=== PATIENT | female | born 1960 | race Asian ===

== ENCOUNTER 2020-09-25 10:30 | Inpatient (IN) | payer MEDICARE, OTHER ==
[~2020-09-25] VITALS: Ht 154.9 cm; Wt 76.0 kg
[~2020-09-25 10:30] MED LIST: ASPI-1450 PO; HYDR25TA2 PO; INSU100V SQ; LISI-894 PO; LOVA20TA73 PO; METF-1211 PO
[2020-09-25] MEDS ORDERED: FAMO20 PO (10:53)
[2020-09-25] MEDS ORDERED: DULA1.5P SQ (10:53)
[2020-09-25] MEDS ORDERED: APIX5TAB PO (10:53)
[2020-09-25] MEDS ORDERED: EMPA25TA PO (10:53)
[2020-09-25] MEDS ORDERED: METO25 PO (10:53)
[2020-09-25] MEDS ORDERED: INSU200I4 SQ (10:53)
[2020-10-01] MEDS ORDERED: AMIO200T68 PO ×2 (15:17→17:37)
[2021-02-26] MEDS ORDERED: RINGERS SOLUTION,LACTATED 1,000 ML IV ONE ×2 (05:11→07:30)
[2021-02-26] MEDS ORDERED: ETHYL ALCOHOL 62% ANTISEPTIC NASAL INHALANT 0.6 ML AMPUL NASAL ONE (07:45)
[2021-02-26 08:13] LABS: COVID AG,FIA SOURCE NASOPHARYNGEAL
[2021-02-26] MEDS ORDERED: TRANEXAMIC ACID 1,000 MG in DEXTROSE 5%-WATER 50 ML IV ONE (08:30)
[2021-02-26] MEDS ORDERED: FentaNYL CITRATE PF 100 MCG/2 ML VIAL IVP PRN (08:30)
[2021-02-26] MEDS ORDERED: ONDANSETRON HCL 4 MG/2 ML VIAL IVP PRN ×3 (08:30→20:00)
[2021-02-26] MEDS ORDERED: MEPERIDINE-PF 25 MG/ML VIAL IVP PRN (08:30)
[2021-02-26] MEDS ORDERED: CYCLOBENZAPRINE HCL 10 MG TABLET PO PRN (08:30)
[2021-02-26] MEDS ORDERED: BUPIVACAINE LIPOSOME/PF 1.3%-13.3MG/ML SUSPENSION 20 ML VIAL INJ ONE (08:30)
[2021-02-26] MEDS ORDERED: HYDROmorphone 2 MG/ML VIAL IVP PRN ×2 (08:30)
[2021-02-26] MEDS ORDERED: ZOLPIDEM TARTRATE 5 MG TABLET PO PRN ×2 (08:30→20:00)
[2021-02-26] MEDS ORDERED: OxyCODONE HCL 5 MG IR TABLET PO PRN (08:30)
[2021-02-26 08:35] LABS: BASOPHILS % (AUTO) 0.9 % (0.0-2.0); EOSINOPHILS % (AUTO) 4.4 % (1.0-6.0); HEMOGLOBIN 12.8 g/dL (12.0-16.0); LYMPHOCYTES # (AUTO) 2.1 K/uL (1.0-4.8); LYMPHOCYTES % (AUTO) 38.6 % (22.0-44.0); MEAN CORPUSCULAR HEMOGLOBIN 25.8 pg (26.0-34.0); MEAN CORPUSCULAR HGB CONC 31.2 G/dL (31.0-37.0); MEAN CORPUSCULAR VOLUME 83 fL (80-100); MONOCYTES # (AUTO) 0.5 K/uL (0.1-1.0); MONOCYTES % (AUTO) 8.9 % (2.0-9.0); NEUTROPHILS # (AUTO) 2.6 K/uL (1.8-7.7); NEUTROPHILS % (AUTO) 47.2 % (40.0-70.0); PLATELET COUNT (AUTO) 271 K/uL (150-450); RED BLOOD CELL COUNT(AUTO) 4.96 MIL/uL (4.00-5.20); RED CELL DISTRIBUTION WIDTH 23.2 % (11.5-14.5)
[2021-02-26 08:36] LABS: CALCIUM, TOTAL 9.4 mg/dL (8.8-10.5); CREATININE 1.15 mg/dL (0.60-1.30); POTASSIUM 4.1 mmol/L (3.5-5.1)
[2021-02-26] MEDS ORDERED: SODIUM CL IRRIG SOLN BAG 3,000 ML IRRIG ONE (08:37)
[2021-02-26] MEDS ORDERED: BUPIVACAINE HCL/PF 0.5% 30 ML VIAL ONE (08:38)
[2021-02-26] MEDS ORDERED: VANCOMYCIN HCL 1 GM/VIAL ONE (08:39)
[2021-02-26 08:42] LABS: INR 0.9 (0.9-1.1); PROTHROMBIN TIME 10.1 SEC (9.4-11.6)
[2021-02-26 08:44] LABS: ALBUMIN 3.3 g/dL (3.4-5.0); BILIRUBIN,TOTAL 0.2 mg/dL (0.1-1.0); TOTAL PROTEIN, SERUM 8.2 g/dL (6.4-8.2)
[2021-02-26] MEDS ORDERED: CELECOXIB 200 MG CAPSULE ONE (08:45)
[2021-02-26] MEDS ORDERED: CELECOXIB 200 MG CAPSULE PO ONE (09:00)
[2021-02-26] MEDS ORDERED: DIGOXIN 250 MCG/ML 2 ML AMP ONE (09:45)
[2021-02-26] MEDS ORDERED: SODIUM CHLORIDE 0.9% 100 ML ONE (09:58)
[2021-02-26] MEDS ORDERED: ASPI-1444 PO (11:00)
[2021-02-26] MEDS ORDERED: FERR325T23 PO (11:00)
[2021-02-26] MEDS ORDERED: BISACODYL 10 MG RECTAL RECTAL SUPPOSITORY PR PRN ×2 (11:45→20:00)
[2021-02-26] MEDS ORDERED: BENZOCAINE/MENTHOL LOZENGE PO PRN (11:45)
[2021-02-26] MEDS ORDERED: DiphenhydrAMINE HCL 50 MG/ML VIAL IVP PRN (11:45)
[2021-02-26] MEDS ORDERED: MAG HYDROX/AL HYDROX/SIMETH 30 ML SUSP UDCUP PO PRN (11:45)
[2021-02-26 16:03] VITALS: BP 121/65
[2021-02-26] MEDS ORDERED: SODIUM CHLORIDE 0.9% 250 ML IV ONE (17:12)
[2021-02-26] MEDS: ACETAMINOPHEN 1000 MG/ISO-OSM 100 ML IV SCH ×2 (17:20→20:12)
[2021-02-26] MEDS: CeFAZolin 1 GM/DEXTROSE 50 ML IV SCH (17:41)
[2021-02-26] MEDS ORDERED: MORPHINE SULFATE 2 MG/ML SYRINGE IVP PRN (20:00)
[2021-02-26] MEDS ORDERED: MAGNESIUM HYDROXIDE SUSPENSION 30 ML UDCUP PO PRN (20:00)
[2021-02-26] MEDS ORDERED: HYDROCODONE/ACETAMINOPHEN 5-325 MG TABLET PO PRN (20:00)
[2021-02-26] MEDS ORDERED: ALBUTEROL SULFATE 2.5 MG/0.5 ML NEB SOLUTION NEB PRN (20:00)
[2021-02-26] MEDS ORDERED: IPRATROPIUM BROMIDE 0.5 MG/2.5 ML NEB SOLUTION NEB PRN (20:00)
[2021-02-26] MEDS ORDERED: ACETAMINOPHEN 325 MG TABLET PO PRN (20:00)
[2021-02-26] MEDS ORDERED: DEXTROSE 50%-WATER 25 GM/50 ML SYRINGE IVP PRN (20:00)
[2021-02-26] MEDS: OXYGEN THERAPY IH SCH (20:11)
[2021-02-26] MEDS: DOCUSATE SODIUM 100 MG CAPSULE PO SCH (20:12)
[2021-02-26] MEDS: FAMOTIDINE 20 MG TABLET PO SCH (20:12)
[2021-02-26 20:33] VITALS: BP 127/58
[2021-02-26] MEDS ORDERED: DOCUSATE SODIUM 100 MG CAPSULE PO SCH (21:00)
[2021-02-26] MEDS: CELECOXIB 200 MG CAPSULE PO SCH (21:28)
[2021-02-26] MEDS: INSULIN LISPRO 100 UNITS/ML SQ PRN (21:31)
[2021-02-27] MEDS: CeFAZolin 1 GM/DEXTROSE 50 ML IV SCH (00:05)
[2021-02-27 00:48] VITALS: BP 107/63
[2021-02-27] MEDS: ACETAMINOPHEN 1000 MG/ISO-OSM 100 ML IV SCH ×2 (03:28→08:53)
[2021-02-27 05:06] VITALS: BP 109/50
[2021-02-27] MEDS: INSULIN LISPRO 100 UNITS/ML SQ PRN ×3 (06:05→20:22)
[2021-02-27] MEDS ORDERED: ROCURONIUM BROMIDE 10 MG/ML 5 ML VIAL IVP ONE (06:22)
[2021-02-27] MEDS ORDERED: DEXAMETHASONE SOD PHOS 4 MG/ML VIAL IVP ONE (06:22)
[2021-02-27] MEDS ORDERED: ONDANSETRON HCL 4 MG/2 ML VIAL IVP ONE (06:22)
[2021-02-27] MEDS ORDERED: FentaNYL CITRATE PF 100 MCG/2 ML VIAL IVP ONE (06:22)
[2021-02-27] MEDS ORDERED: PROPOFOL 1% 20 ML VIAL IVP ONE (06:22)
[2021-02-27] MEDS ORDERED: MIDAZOLAM HCL 2 MG/2 ML VIAL IVP ONE (06:22)
[2021-02-27] MEDS ORDERED: HYDROmorphone 2 MG/ML VIAL IVP ONE (06:22)
[2021-02-27] MEDS ORDERED: LIDOCAINE/PF 2% 5 ML VIAL IM ONE (06:22)
[2021-02-27] MEDS ORDERED: 0.9% SODIUM CHLORIDE 10 ML VIAL IVP ONE (06:22)
[2021-02-27 06:31] LABS: GLUCOMETER DEV NAME(LOC) 5N.1C; GLUCOSE,POINT OF CARE 221 MG/DL (70-110)
[2021-02-27 06:52] LABS: BASOPHILS % (AUTO) 0.1 % (0.0-2.0); EOSINOPHILS % (AUTO) 0 % (1.0-6.0); HEMATOCRIT 33.4 % (36-46); HEMOGLOBIN 10.5 g/dL (12.0-16.0); LYMPHOCYTES # (AUTO) 1.4 K/uL (1.0-4.8); LYMPHOCYTES % (AUTO) 13.2 % (22.0-44.0); MEAN CORPUSCULAR HGB CONC 31.5 G/dL (31.0-37.0); MEAN CORPUSCULAR VOLUME 83 fL (80-100); MONOCYTES # (AUTO) 0.8 K/uL (0.1-1.0); MONOCYTES % (AUTO) 8.2 % (2.0-9.0); NEUTROPHILS % (AUTO) 78.5 % (40.0-70.0); PLATELET COUNT (AUTO) 225 K/uL (150-450); RED BLOOD CELL COUNT(AUTO) 4.05 MIL/uL (4.00-5.20); RED CELL DISTRIBUTION WIDTH 22.7 % (11.5-14.5)
[2021-02-27 07:02] LABS: CALCIUM, TOTAL 8.6 mg/dL (8.8-10.5); CREATININE 1.44 mg/dL (0.60-1.30); POTASSIUM 4.4 mmol/L (3.5-5.1)
[2021-02-27 07:03] VITALS: BP 118/51
[2021-02-27] MEDS: OXYGEN THERAPY IH SCH ×2 (08:47→20:00)
[2021-02-27] MEDS: ENOXAPARIN SODIUM 40 MG/0.4 ML PF SYRINGE SQ SCH (08:54)
[2021-02-27] MEDS: DOCUSATE SODIUM 100 MG CAPSULE PO SCH ×2 (08:55→20:19)
[2021-02-27] MEDS: LOVASTATIN 20 MG TABLET PO SCH (08:55)
[2021-02-27] MEDS: ASPIRIN 81 MG DR TABLET PO SCH (08:55)
[2021-02-27] MEDS: FAMOTIDINE 20 MG TABLET PO SCH ×2 (08:56→20:18)
[2021-02-27] MEDS: HYDROCHLOROTHIAZIDE 25 MG TABLET PO SCH (08:56)
[2021-02-27] MEDS: CELECOXIB 200 MG CAPSULE PO SCH ×2 (08:56→20:19)
[2021-02-27] MEDS: HEPARIN SODIUM,PORCINE 5,000 UNITS/ML VIAL SQ SCH ×2 (08:57)
[2021-02-27] MEDS ORDERED: PANTOPRAZOLE SODIUM 40 MG/VIAL IVP SCH (09:00)
[2021-02-27] MEDS ORDERED: MISC MED-CONVERTED FROM AMBULATORY (Empagliflozin (Jardiance) 25 MG) PO SCH (09:00)
[2021-02-27] MEDS ORDERED: FAMOTIDINE 20 MG TABLET PO SCH (09:00)
[2021-02-27] MEDS ORDERED: SODIUM CHLORIDE 0.9% 1,000 ML ONE (09:49)
[2021-02-27 10:21] VITALS: BP 136/59
[2021-02-27] MEDS: SODIUM CHLORIDE 0.9% 1,000 ML IV SCH ×2 (11:28→23:16)
[2021-02-27 11:46] LABS: GLUCOMETER DEV NAME(LOC) 5N.3; GLUCOSE,POINT OF CARE 143 MG/DL (70-110)
[2021-02-27 12:16] LABS: GLUCOMETER DEV NAME(LOC) 5N.1C; GLUCOSE,POINT OF CARE 139 MG/DL (70-110)
[2021-02-27] MEDS ORDERED: FERR-89 PO (13:57)
[2021-02-27 14:09] VITALS: BP 141/60
[2021-02-27 19:35] VITALS: BP 136/55
[2021-02-27 21:01] LABS: GLUCOMETER DEV NAME(LOC) 5N.1C; GLUCOSE,POINT OF CARE 210 MG/DL (70-110)
[2021-02-27 21:01] LABS: GLUCOMETER DEV NAME(LOC) 5N.1C; GLUCOSE,POINT OF CARE 190 MG/DL (70-110)
[2021-02-28 00:15] VITALS: BP 108/64
[2021-02-28] MEDS: OxyCODONE HCL/ACETAMINOPHEN 10-325 MG TABLET PO PRN ×3 (03:37→20:04)
[2021-02-28 04:20] VITALS: BP 120/56
[2021-02-28 07:05] VITALS: BP 127/62
[2021-02-28 07:15] LABS: BASOPHILS % (AUTO) 0.8 % (0.0-2.0); EOSINOPHILS % (AUTO) 3.5 % (1.0-6.0); HEMATOCRIT 29.2 % (36-46); HEMOGLOBIN 9.2 g/dL (12.0-16.0); LYMPHOCYTES # (AUTO) 2.8 K/uL (1.0-4.8); LYMPHOCYTES % (AUTO) 29.1 % (22.0-44.0); MEAN CORPUSCULAR HEMOGLOBIN 26.2 pg (26.0-34.0); MEAN CORPUSCULAR HGB CONC 31.7 G/dL (31.0-37.0); MEAN CORPUSCULAR VOLUME 83 fL (80-100); MONOCYTES % (AUTO) 10.8 % (2.0-9.0); NEUTROPHILS # (AUTO) 5.3 K/uL (1.8-7.7); NEUTROPHILS % (AUTO) 55.8 % (40.0-70.0); PLATELET COUNT (AUTO) 181 K/uL (150-450); RED BLOOD CELL COUNT(AUTO) 3.53 MIL/uL (4.00-5.20); RED CELL DISTRIBUTION WIDTH 22.6 % (11.5-14.5)
[2021-02-28 07:29] LABS: ALBUMIN 2.8 g/dL (3.4-5.0); BILIRUBIN,TOTAL 0.2 mg/dL (0.1-1.0); CALCIUM, TOTAL 8.2 mg/dL (8.8-10.5); CREATININE 1.02 mg/dL (0.60-1.30); POTASSIUM 3.7 mmol/L (3.5-5.1); TOTAL PROTEIN, SERUM 6.8 g/dL (6.4-8.2)
[2021-02-28 07:35] LABS: GLUCOMETER DEV NAME(LOC) 5N.1C; GLUCOSE,POINT OF CARE 128 MG/DL (70-110)
[2021-02-28] MEDS: OXYGEN THERAPY IH SCH ×2 (08:00→20:00)
[2021-02-28] MEDS: LOVASTATIN 20 MG TABLET PO SCH (08:00)
[2021-02-28] MEDS: FAMOTIDINE 20 MG TABLET PO SCH ×2 (08:00→20:04)
[2021-02-28] MEDS: ASPIRIN 81 MG DR TABLET PO SCH (08:00)
[2021-02-28] MEDS: DOCUSATE SODIUM 100 MG CAPSULE PO SCH ×2 (08:00→20:04)
[2021-02-28] MEDS: CELECOXIB 200 MG CAPSULE PO SCH ×2 (08:00→20:04)
[2021-02-28] MEDS: ENOXAPARIN SODIUM 40 MG/0.4 ML PF SYRINGE SQ SCH (08:01)
[2021-02-28] MEDS: HYDROCHLOROTHIAZIDE 25 MG TABLET PO SCH (08:02)
[2021-02-28] MEDS ORDERED: DIGOXIN 250 MCG/ML 2 ML AMP IVP ONE (08:30)
[2021-02-28] MEDS: AMIODARONE HCL 200 MG TABLET PO SCH ×2 (09:47→20:03)
[2021-02-28] MEDS: APIXABAN 5 MG TABLET PO SCH ×2 (09:47→20:04)
[2021-02-28 11:17] VITALS: BP 106/76
[2021-02-28] MEDS ORDERED: SODIUM CHLORIDE 0.9% 500 ML IV ONE (12:08)
[2021-02-28] MEDS: INSULIN LISPRO 100 UNITS/ML SQ PRN ×3 (12:13→20:11)
[2021-02-28] MEDS: SODIUM CHLORIDE 0.9% 1,000 ML IV SCH (12:52)
[2021-02-28 15:19] VITALS: BP 103/63
[2021-02-28 19:52] VITALS: BP 127/75
[2021-02-28 20:21] LABS: GLUCOMETER DEV NAME(LOC) 5N.1C; GLUCOSE,POINT OF CARE 168 MG/DL (70-110)
[2021-02-28 21:21] LABS: GLUCOMETER DEV NAME(LOC) 5N.3; GLUCOSE,POINT OF CARE 257 MG/DL (70-110)
[2021-02-28 21:21] LABS: GLUCOMETER DEV NAME(LOC) 5N.3; GLUCOSE,POINT OF CARE 159 MG/DL (70-110)
[2021-03-01] VITALS (7 sets, daily range): BP systolic 109–149; BP diastolic 48–91
[2021-03-01] MEDS: SODIUM CHLORIDE 0.9% 1,000 ML IV SCH (00:38)
[2021-03-01 05:52] LABS: GLUCOMETER DEV NAME(LOC) 5N.3; GLUCOSE,POINT OF CARE 165 MG/DL (70-110)
[2021-03-01] MEDS: OxyCODONE HCL/ACETAMINOPHEN 10-325 MG TABLET PO PRN ×3 (06:47→22:56)
[2021-03-01 07:21] LABS: GLUCOMETER DEV NAME(LOC) 5N.3; GLUCOSE,POINT OF CARE 131 MG/DL (70-110)
[2021-03-01 08:19] LABS: BASOPHILS % (AUTO) 0.7 % (0.0-2.0); HEMATOCRIT 29.7 % (36-46); HEMOGLOBIN 9.3 g/dL (12.0-16.0); LYMPHOCYTES # (AUTO) 2.6 K/uL (1.0-4.8); LYMPHOCYTES % (AUTO) 28.8 % (22.0-44.0); MEAN CORPUSCULAR HEMOGLOBIN 26.3 pg (26.0-34.0); MEAN CORPUSCULAR HGB CONC 31.4 G/dL (31.0-37.0); MEAN CORPUSCULAR VOLUME 84 fL (80-100); MONOCYTES # (AUTO) 0.9 K/uL (0.1-1.0); MONOCYTES % (AUTO) 9.7 % (2.0-9.0); NEUTROPHILS % (AUTO) 56.8 % (40.0-70.0); PLATELET COUNT (AUTO) 194 K/uL (150-450); RED BLOOD CELL COUNT(AUTO) 3.55 MIL/uL (4.00-5.20); RED CELL DISTRIBUTION WIDTH 22.3 % (11.5-14.5)
[2021-03-01] MEDS: DOCUSATE SODIUM 100 MG CAPSULE PO SCH ×2 (08:26→20:13)
[2021-03-01] MEDS: AMIODARONE HCL 200 MG TABLET PO SCH ×2 (08:26→20:13)
[2021-03-01] MEDS: FAMOTIDINE 20 MG TABLET PO SCH ×2 (08:28→20:13)
[2021-03-01] MEDS: APIXABAN 5 MG TABLET PO SCH ×2 (08:28→20:13)
[2021-03-01] MEDS: CELECOXIB 200 MG CAPSULE PO SCH ×2 (08:28→20:13)
[2021-03-01] MEDS: ASPIRIN 81 MG DR TABLET PO SCH (08:28)
[2021-03-01] MEDS: HYDROCHLOROTHIAZIDE 25 MG TABLET PO SCH (08:32)
[2021-03-01] MEDS: LOVASTATIN 20 MG TABLET PO SCH (08:33)
[2021-03-01] MEDS: OXYGEN THERAPY IH SCH ×2 (08:35→20:00)
[2021-03-01] MEDS ORDERED: DIGOXIN 250 MCG/ML 2 ML AMP IVP ONE (12:30)
[2021-03-01 15:21] LABS: GLUCOMETER DEV NAME(LOC) 5N.3; GLUCOSE,POINT OF CARE 110 MG/DL (70-110)
[2021-03-01] MEDS: INSULIN LISPRO 100 UNITS/ML SQ PRN (20:15)
[2021-03-01 22:16] LABS: GLUCOMETER DEV NAME(LOC) 5N.3; GLUCOSE,POINT OF CARE 109 MG/DL (70-110)
[2021-03-01 22:16] LABS: GLUCOMETER DEV NAME(LOC) 5N.3; GLUCOSE,POINT OF CARE 214 MG/DL (70-110)
[2021-03-02] MEDS: OXYGEN THERAPY IH SCH (08:00)
[2021-03-02 08:05] VITALS: BP 128/70
[2021-03-02] MEDS: FAMOTIDINE 20 MG TABLET PO SCH (08:05)
[2021-03-02] MEDS: DOCUSATE SODIUM 100 MG CAPSULE PO SCH (08:05)
[2021-03-02] MEDS: CELECOXIB 200 MG CAPSULE PO SCH (08:06)
[2021-03-02] MEDS: ASPIRIN 81 MG DR TABLET PO SCH (08:06)
[2021-03-02] MEDS: OxyCODONE HCL/ACETAMINOPHEN 10-325 MG TABLET PO PRN (08:06)
[2021-03-02] MEDS: APIXABAN 5 MG TABLET PO SCH (08:06)
[2021-03-02] MEDS: AMIODARONE HCL 200 MG TABLET PO SCH (08:06)
[2021-03-02] MEDS: HYDROCHLOROTHIAZIDE 25 MG TABLET PO SCH (08:09)
[2021-03-02] MEDS: LOVASTATIN 20 MG TABLET PO SCH (08:09)
[2021-03-02] MEDS ORDERED: CARVEDILOL 3.125 MG TABLET PO ONE (11:00)
[2021-03-02 11:12] VITALS: BP 125/58
[2021-03-02] MEDS: INSULIN LISPRO 100 UNITS/ML SQ PRN (11:25)
[2021-03-02 11:51] LABS: GLUCOMETER DEV NAME(LOC) 5N.3; GLUCOSE,POINT OF CARE 203 MG/DL (70-110)
[2021-03-02 11:51] LABS: GLUCOMETER DEV NAME(LOC) 5N.3; GLUCOSE,POINT OF CARE 133 MG/DL (70-110)
[2021-03-02] MEDS ORDERED: FAMO20 PO (14:45)
[2021-03-02] MEDS ORDERED: CARV3 PO ×2 (14:45)
[2021-03-02] MEDS ORDERED: AMIO200 PO (14:45)
[2021-03-02] MEDS ORDERED: CYCL10TA16 PO (14:45)
[2021-03-02] MEDS ORDERED: CARVEDILOL 3.125 MG TABLET PO SCH (21:00)
== END 2021-03-02 15:15 | disposition home health service (06) | DRG 470 ==
LOC: EDUNIT# 10:30 → 6N 02-26 07:42 → 5S 02-26 14:28
PROVIDERS: ADMIT Orthopaedic Surgery; ATTEND Orthopaedic Surgery
PROC: 0SRC069 Replacement of Right Knee Joint with Oxidized Zirconium on Polyethylene Synthetic Substitute, Cemented, Open Approach (ICD-10-PCS; principal; 2021-02-26 09:55)
DX: M17.11 Unilateral primary osteoarthritis, right knee (principal); I48.20 Chronic atrial fibrillation, unspecified; E78.5 Hyperlipidemia, unspecified; E11.9 Type 2 diabetes mellitus without complications; I10 Essential (primary) hypertension; Z96.652 Presence of left artificial knee joint; E78.00 Pure hypercholesterolemia, unspecified; I48.0 Paroxysmal atrial fibrillation; Z20.822 Contact with and (suspected) exposure to COVID-19; Z79.01 Long term (current) use of anticoagulants; D64.9 Anemia, unspecified
CPT/HCPCS: 80048; 80053; 82962; 85025; 85610; 85730; 87081; 88300; 93005; 97110; 97116; 97162; 97165; 97530; 97535; C9290; J0131; J0690; J1100; J1160; J1170; J1644; J1650; J2250; J2405; J2704; J3010; J3370; J3490; J7030; J7040; J7050; J7060; J7120